=== PATIENT | male | born 1980 | race American Indian/Alaskan Native ===

== ENCOUNTER 2017-01-05 19:44 | Emergency (ER) | payer MEDICAID ==
[2017-01-05 19:57] VITALS: BP 144/101
[2017-01-05] MEDS ORDERED: Ketorolac 60 MG/2 ML SDV IM ONE (19:58)
[2017-01-05] MEDS ORDERED: LORazepam 1 MG Tab PO ONE (19:58)
[2017-01-05 20:53] LABS: CHLORIDE,CL 107 mmol/L (98-107); SODIUM,NA 143 mmol/L (136-145)
--- NOTE | 2017-01-07 08:12 | ER ---
Date of Service: 01/05/2017 SUBJECTIVE: Tremaine presents to the emergency room with complaints of substernal chest pain. The patient states that he has experienced this in the past when he has been under stress. He states that he has been out of his Klonopin for several days. He states the discomfort is worse when he takes a deep breath or when he moves. He states that he has been experiencing some mild cough. He has not been experiencing any diaphoresis or shortness of breath. PAST MEDICAL HISTORY: 1. History of chest pain. 2. Anxiety. 3. Tobacco abuse disorder. REVIEW OF SYSTEMS: General: Denies any fever or chills. HEENT: No sore throat, rhinorrhea, or congestion. Respiratory: No shortness of breath. Cardiac: Please see history of present illness. No jaw, arm, neck, or back pain. Gastrointestinal: No nausea, vomiting, or diarrhea. No melena, hematochezia, or hematemesis. Genitourinary: Denies any dysuria. Musculoskeletal: No myalgias or arthralgias. PHYSICAL EXAMINATION: General: This is a 36-year-old male patient. No acute distress. Vital Signs: Blood pressure is 144/101, pulse rate is 93, temperature is 35.3, respiratory rate is 18, O2 saturations 99%. Skin: Warm, pink, and dry. HEENT: Mouth, oral mucosa is moist. Lungs: Clear to auscultation. Heart: Regular rate and rhythm. Abdomen: Soft, nontender. There is no hepatosplenomegaly or masses noted. Extremities: Without edema. Neurologic: He is alert and oriented. Answers all questions appropriately. His speech is fluent. His gait is within normal limits. DIAGNOSTIC DATA: A 12-lead EKG was obtained showing a sinus rhythm without acute ST or T-wave abnormalities. LABORATORY DATA: WBCs 11.6, hemoglobin is 15.5, platelets are 301. D-dimer negative at 0.20. Comprehensive metabolic panel was obtained; sodium is 143, potassium is 3.4, chloride is 107, bicarb is 26, BUN is 9, creatinine is 0.9, GFR is greater than 60, glucose is 130, calcium is 8.4, corrected calcium is 8.64, total bilirubin is 0.4, AST is 13, ALT is 33. CK-MB is negative. Troponin is 0.00. Chest x-ray was obtained showing no acute pathology. EMERGENCY ROOM COURSE: The patient was given lorazepam 1 mg p.o. and Toradol 60 mg IM. He reported improvement in his discomfort and states that he was pain- free at time of discharge. ASSESSMENT: Atypical chest pain. PLAN: The patient will be discharged. He was advised to follow up with his primary care provider in the next week. He was given a prescription for lorazepam 0.5 mg 1 twice daily as needed for anxiety and Toradol 10 mg every 6 hours as needed for discomfort. All questions were answered. MWK: 01/06/2017 06:44:53 MODL: 01/06/2017 11:45:38 /[id number]
== END 2017-01-05 21:10 | disposition home or self-care (01) ==
LOC: VM.ED 19:44
DX: R07.89 Other chest pain (principal); F41.9 Anxiety disorder, unspecified; R05 Cough
CPT/HCPCS: 36415; 71020; 80053; 82550; 82553; 84484; 85025; 85379; 93005; 96372; 99285; A9270; J1885

== ENCOUNTER 2017-03-16 18:21 | Emergency (ER) | payer MEDICAID ==
--- NOTE | 2017-03-16 18:56 | EDM.PDOC ---
ED HPI GENERAL MEDICAL PROBLEM - General Chief Complaint: Upper Extremity Injury/Pain Stated Complaint: BUSTED ARM Time Seen by Provider: 03/16/17 18:48 Source of Information: Reports: Patient History Limitations: Reports: No Limitations - History of Present Illness INITIAL COMMENTS - FREE TEXT/NARRATIVE: Patient reports jumping on his kitchen counter and fell off, landing on his right hand. It has a visible deformity to the right hand. He smokes 1.5 packs per day, does drink on occasion, smokes marijuana on occasion. He did not hit his head or lose consciousness. No other complaints. Onset: Today Onset Date: 03/16/17 Onset Time: 18:30 Location: Reports: Upper Extremity, Right Quality: Reports: Ache, Sharp Severity: Moderate Improves with: Reports: Cold Therapy Worsens with: Reports: Movement Associated Symptoms: Reports: No Other Symptoms Right Hand Pain Score (Numeric/FACES): 10 - Related Data Allergies Allergy/AdvReac Type Severity Reaction Status Date / Time phenobarbital Allergy Seizure Verified 03/16/17 18:48 Home Meds: Home Meds risperiDONE 1 tab DAILY 03/16/17 [History] Past Medical History - Past Health History Medical/Surgical History: Denies Medical/Surgical History Cardiovascular History: Reports: Hypertension Psychiatric History: Reports: Anxiety, Depression - Past Surgical History GI Surgical History: Reports: Hernia, Inguinal Musculoskeletal Surgical History: Reports: Other (See Below) Social & Family History - Tobacco Use Smoking Status *Q: Current Every Day Smoker Years of Tobacco use: 10 Packs/Tins Daily: 1 Used Tobacco, but Quit: No - Alcohol Use Days Per Week of Alcohol Use: 1 Number of Drinks Per Day: 3 Total Drinks Per Week: 3 - Recreational Drug Use Recreational Drug Use: Yes Recreational Drug Type: Reports: Marijuana/Hashish - Living Situation & Occupation Living situation: Reports: Occupation: Unemployed Review of Systems - Review of Systems Review Of Systems: See Below Constitutional: Reports: No Symptoms Eyes: Reports: No Symptoms Ears: Reports: No Symptoms Nose: Reports: No Symptoms Mouth/Throat: Reports: No Symptoms Respiratory: Reports: No Symptoms Cardiovascular: Reports: No Symptoms GI/Abdominal: Reports: No Symptoms Genitourinary: Reports: No Symptoms Musculoskeletal: Reports: Hand Pain (right) Skin: Reports: No Symptoms Neurological: Reports: No Symptoms Psychiatric: Reports: No Symptoms ED EXAM, GENERAL - Physical Exam Exam: See Below Exam Limited By: No Limitations General Appearance: Alert, WD/WN, Moderate Distress Eye Exam: Bilateral Eye: EOMI, PERRL Head: Atraumatic, Normocephalic Neck: Normal Inspection, Supple Respiratory/Chest: No Respiratory Distress, Lungs Clear, Normal Breath Sounds, No Accessory Muscle Use, Chest Non-Tender Cardiovascular: Normal Peripheral Pulses, Regular Rate, Rhythm, No Edema, No Gallop, No Murmur GI/Abdominal: Normal Bowel Sounds, Soft, Non-Tender Extremities: No Pedal Edema, Joint Swelling, Arm Pain, Limited Range of Motion ( right hand has visible swelling as well as visible and palpable deformity. ) Neurological: Alert, Oriented, CN II-XII Intact, Normal Cognition Psychiatric: Normal Affect, Anxious Skin Exam: Warm, Dry, Intact, Normal Color Lymphatic: No Adenopathy ED TRAUMA EXTREMITY PROCEDURES - Joint Reduction Site: Other (hand right) Sedation: Hematoma/Fracture Block Local Anesthesia - Lidocaine (Xylocaine): 1% Plain Local Anesthetic Volume: 5cc Pre-Procedure NV Status: Normal Post-Procedure NV Status: Normal Technique: Traction/Counter Traction Number of Attempts: 1 Post-Reduction Imaging: Acceptably Reduced (Dr. Cintron did review films) Joint Reduction Complications: No - Splinting Right 5th Digit Splint Site: fourth and fifth Pre-Procedure NV Status: Normal Post-Procedure NV Status: Normal Splint Material: Fiberglass Splint Design: Gutter (ulnar gutter) Applied & Form Fitted By: Provider, Nurse Provider Post-Splint Application NV Check: NV Status Normal, Good Position Complications: No Progress/Comments: Review of x-rays with Dr. Cintron at [facility]. Fine to have him follow up in 1 week. Ulnar gutter splint is acceptable splinting for this fracture. Course - Vital Signs Last Recorded V/S: Last Vital Signs Temp 35.7 C 03/16/17 18:40 Pulse 93 03/16/17 18:40 Resp 20 03/16/17 18:40 BP 143/105 H 03/16/17 18:40 Pulse Ox - Orders/Labs/Meds Orders: Active Orders 24 hr Category Date Time Status Hand Comp Min 3V Rt [CR] Stat Exams 03/16/17 18:58 Taken Hand Comp Min 3V Rt [CR] Stat Exams 03/16/17 20:36 Taken Meds: Medications Discontinued Medications Generic Name Dose Route Start Last Admin Trade Name Rajinder PRN Reason Stop Dose Admin Hydromorphone HCl 1 mg 03/16/17 18:58 03/16/17 19:08 Dilaudid IM 03/16/17 18:59 1 mg ONETIME ONE Administration Ketorolac Tromethamine 30 mg 03/16/17 18:59 03/16/17 19:09 Toradol IM 03/16/17 19:00 30 mg ONETIME ONE Administration Lidocaine HCl 5 ml 03/16/17 20:12 03/16/17 20:27 Xylocaine-Mpf 1% INJECT 03/16/17 20:13 5 ml ONETIME ONE Administration Departure - Departure Time of Disposition: 22:01 Disposition: Home, Self-Care 01 Condition: Good Clinical Impression: Fracture of hand, Boxers fracture - Discharge Information Instructions: Cast or Splint Care, [id number], Metacarpal Fracture, Easy-to- Read Forms: ED Department Discharge Additional Instructions: Elevate, compress and ice your hand. Keep splint clean and dry Take ibuprofen for pain, as well as the [place] Follow up with Dr. Boss, communications strategist [facility] orthopedic doctor. Follow up with your primary for symptom management. Please call us with any questions or concerns. - Problem List & Annotations (1) Boxers fracture SNOMED Code(s): 51650951 Code(s): S62.309A - UNSP FRACTURE OF UNSP METACARPAL BONE, INIT FOR CLOS FX Status: Acute Priority: Medium Current Visit: Yes Qualifiers: Encounter type: initial encounter Fracture type: closed Qualified Code(s) : S62.309A - Unspecified fracture of unspecified metacarpal bone, initial encounter for closed fracture - Problem List Review Problem List Initiated/Reviewed/Updated: Yes - My Orders Last 24 Hours: My Active Orders 03/16/17 18:58 Hand Comp Min 3V Rt [CR] Stat 03/16/17 20:36 Hand Comp Min 3V Rt [CR] Stat - Assessment/Plan Last 24 Hours: My Active Orders 03/16/17 18:58 Hand Comp Min 3V Rt [CR] Stat 03/16/17 20:36 Hand Comp Min 3V Rt [CR] Stat Assessment:: boxer's fracture 4th and 5th metacarpal Plan: Elevate, compress and ice your hand. Keep splint clean and dry Take ibuprofen for pain, as well as the [place] Follow up with Dr. Boss, communications strategist [facility] orthopedic doctor. Follow up with your primary for symptom management. Please call us with any questions or concerns.
[2017-03-16] MEDS ORDERED: HYDROmorphone 1 MG/ML Syringe IM ONE (18:58)
[2017-03-16] MEDS ORDERED: Ketorolac 30 MG/ML SDV IM ONE (18:59)
[2017-03-16 19:07] VITALS: BP 143/105
[2017-03-16] MEDS ORDERED: Take Home: Acetaminophen/HYDROcodone 325-10 MG, 5 Tab Pack PO ONE (21:58)
== END 2017-03-16 22:07 | disposition home or self-care (01) ==
LOC: VM.ED 18:21
DX: S62.324A Displaced fracture of shaft of fourth metacarpal bone, right hand, initial encounter for closed fracture (principal); S62.326A Displaced fracture of shaft of fifth metacarpal bone, right hand, initial encounter for closed fracture; I10 Essential (primary) hypertension; F41.9 Anxiety disorder, unspecified; F32.9 Major depressive disorder, single episode, unspecified; F17.210 Nicotine dependence, cigarettes, uncomplicated; Z98.890 Other specified postprocedural states; Z79.899 Other long term (current) drug therapy; Z88.8 Allergy status to other drugs, medicaments and biological substances; W17.89XA Other fall from one level to another, initial encounter; Y92.89 Other specified places as the place of occurrence of the external cause
CPT/HCPCS: 26605; 73130; 96372; 99283; A9270; J1170; J1885; 26700; 29125; 64450

== ENCOUNTER 2017-05-14 16:56 | Emergency (ER) | payer MEDICAID ==
[2017-05-14 17:13] VITALS: BP 159/91
[2017-05-14] MEDS ORDERED: Triamcinolone Acetonide 40 MG/ML 1 ML MDV INJECT ONE (17:16)
[2017-05-14] MEDS ORDERED: Ketorolac 60 MG/2 ML SDV IM ONE (17:16)
--- NOTE | 2017-05-15 02:54 | ER ---
Date of Service: 05/14/2017 SUBJECTIVE: Tremaine presents to the emergency room with complaints of chronic right hand pain. The patient sustained a boxer's fracture on 03/16/2017 after punching a wall. He states that he was in a cast for 1 month and was told that it did not "heal right." The patient is subsequently being set up to see a hand surgeon and states that he has been taking Tylenol and ibuprofen with little improvement in his discomfort. He presents to the emergency room after being seen at [facility] earlier today. The patient states that "no doctors will help him" with his chronic pain in his hand. PAST MEDICAL HISTORY: 1. Boxer's fracture. 2. Hypertension. 3. Inguinal hernia. 4. Anxiety and depression. MEDICATIONS: Risperidone. ALLERGIES: Phenobarbital. REVIEW OF SYSTEMS: Denies any numbness or tingling in the distal portion of the extremity. Denies any new trauma to the hand. PHYSICAL EXAMINATION: General: This is a 37-year-old male patient, who is in no acute distress. Vital Signs: Blood pressure is 159/91, heart rate is 95, respiratory rate 16, O2 saturations 95%. Skin: Warm, pink, and dry. Musculoskeletal: He does have minimal swelling to the dorsum of the hand. No obvious step-offs or deformity noted. No crepitus noted. Neurovascular: Circulation, sensation, and motor function all within normal limits in the distal portion of extremity. EMERGENCY ROOM COURSE: The patient was given injection of Kenalog 40 mg IM and Toradol 60 mg IM. He remained stable under my care in the emergency room. ASSESSMENT: Chronic right hand pain. PLAN: The patient will be discharged. I did advise him that I would not be able to prescribe him any opiate type analgesic medications as this is a chronic medical condition. Advised him to establish care with one of the clinics here in [facility] to get his medications or follow up with his hand surgeon. All questions were answered. MWK: 05/14/2017 21:58:58 MODL: 05/15/2017 02:43:25 /[id number]
== END 2017-05-14 17:30 | disposition home or self-care (01) ==
LOC: VM.ED 16:56
DX: G89.29 Other chronic pain (principal); M79.641 Pain in right hand
CPT/HCPCS: 96372; 99283; J1885; J3301

== ENCOUNTER 2021-10-24 07:25 | Emergency (ER) | payer BC, MEDICAID ==
[2021-10-24 08:20] LABS: CORONAVIRUS COVID-19 NAA POSITIVE (NEGATIVE); RESPIRATORY SYNCYTIAL VIR NAA NEGATIVE (NEGATIVE)
[2021-10-24 08:52] VITALS: BP 161/101; PULSE 96
== END 2021-10-24 08:26 | disposition home or self-care (01) ==
LOC: VM.ED 07:25
DX: U07.1 COVID-19 (principal); I10 Essential (primary) hypertension; Z88.8 Allergy status to other drugs, medicaments and biological substances
CPT/HCPCS: 0241U; 99283; 99284

== ENCOUNTER 2022-05-15 01:40 | Emergency (ER) | payer MEDICAID ==
[2022-05-15 02:26] LABS: ANION GAP 14.5 mmol/L (5-15); CHLORIDE,CL 103 mmol/L (98-107); ESTIMATED GFR 85 mL/min (>=60); SODIUM,NA 142 mmol/L (136-145)
[2022-05-15 05:00] VITALS: BP 142/100; PULSE 80
== END 2022-05-15 02:40 | disposition home or self-care (01) ==
LOC: VM.ED 01:40
DX: R07.89 Other chest pain (principal); F41.9 Anxiety disorder, unspecified; F15.10 Other stimulant abuse, uncomplicated; I10 Essential (primary) hypertension; Z88.8 Allergy status to other drugs, medicaments and biological substances; Z86.16 Personal history of COVID-19
CPT/HCPCS: 36415; 71045; 80053; 84484; 85025; 93005; 93010; 99284; 99285

== ENCOUNTER 2022-05-19 23:20 | Emergency (ER) | payer MEDICAID ==
[2022-05-19 23:46] VITALS: BP 157/125; PULSE 87
[2022-05-20 00:15] LABS: PTT,PARTIAL THROMBOPLSTIN TIME 27.6 SEC (20.5-30.9)
[2022-05-20 00:19] LABS: CHLORIDE,CL 105 mmol/L (98-107); SODIUM,NA 141 mmol/L (136-145)
[2022-05-20 00:20] LABS: ANION GAP 12.5 mmol/L (5-15); ESTIMATED GFR 85 mL/min (>=60)
[2022-05-20 00:40] LABS: CORONAVIRUS COVID-19 NAA NEGATIVE (NEGATIVE); RESPIRATORY SYNCYTIAL VIR NAA NEGATIVE (NEGATIVE)
== END 2022-05-20 01:55 | disposition home or self-care (01) ==
LOC: VM.ED 23:20
DX: R07.89 Other chest pain (principal); I10 Essential (primary) hypertension; F17.210 Nicotine dependence, cigarettes, uncomplicated; Z88.8 Allergy status to other drugs, medicaments and biological substances; Z86.16 Personal history of COVID-19; Z20.822 Contact with and (suspected) exposure to COVID-19
CPT/HCPCS: 0241U; 36415; 71045; 80053; 83735; 84100; 84484; 85025; 85610; 85730; 86140; 93005; 99285

== ENCOUNTER 2022-05-22 16:58 | Emergency (ER) | payer MEDICAID | END 2022-05-22 18:21 | disposition left against medical advice (07) | LOC: VM.ED 16:58 | DX: Z53.21 Procedure and treatment not carried out due to patient leaving prior to being seen by health care provider (principal) ==

== ENCOUNTER 2022-05-22 22:31 | Emergency (ER) | payer MEDICAID ==
[2022-05-22] MEDS ORDERED: Lidocaine 1% with EPINEPHrine 1:100,000 20 ML MDV INFILT PRN (23:13)
[2022-05-22] MEDS ORDERED: Diphtheria,Pertussis(Acell),Tetanus Vaccine 0.5 ML Syringe IM ONE (23:14)
[2022-05-23 03:37] VITALS: BP 138/98; PULSE 86
== END 2022-05-22 23:50 | disposition home or self-care (01) ==
LOC: VM.ED 22:31
DX: S81.812A Laceration without foreign body, left lower leg, initial encounter (principal); I10 Essential (primary) hypertension; Z23 Encounter for immunization; Z88.8 Allergy status to other drugs, medicaments and biological substances; W26.8XXA Contact with other sharp object(s), not elsewhere classified, initial encounter
CPT/HCPCS: 12001; 90471; 90715; 99283; 99283-25

== ENCOUNTER 2023-01-17 15:07 | Emergency (ER) | payer MEDICAID ==
[2023-01-17 17:55] VITALS: BP 119/86; PULSE 100
== END 2023-01-17 15:55 | disposition left against medical advice (07) ==
LOC: VM.ED 15:07
DX: M25.512 Pain in left shoulder (principal); I10 Essential (primary) hypertension; Z88.8 Allergy status to other drugs, medicaments and biological substances; Z86.16 Personal history of COVID-19; Z72.0 Tobacco use
CPT/HCPCS: 73030-LT; 99283